=== PATIENT | male | born 1980 | race Caucasian/White ===

== ENCOUNTER → 2016-08-31 | Outpatient (CLI) | payer BC ==
--- NOTE | 2016-08-31 23:21 | CONS ---
DATE OF CONSULTATION: 08/31/2016 This 35-year-old gentleman has been evaluated in the sleep center for possible obstructive sleep apnea-hypopnea syndrome. HISTORY OF PRESENT ILLNESS:/SLEEP-WAKE EVALUATION: Patient's usual sleep schedule is from 10 or 11 p.m. until 6 or 7 a.m. basically 7 days a week. Sometimes he has problem with falling asleep. He has a TV set in bedroom. He prefers to sleep on the stomach position. According to his , he snores loudly and wakes up from sleep with stopped breathing. He wakes up from sleep 2 times and in the morning he wakes up tired and has problems with memory, feels sleep during the day. Christiana Sleepiness Scale is 11. PAST MEDICAL HISTORY: Positive for occasional episodes of sinusitis. PAST SURGICAL HISTORY: None. MEDICATIONS: None. SOCIAL HISTORY: Negative for smoking. Alcohol consumption is occasional. REVIEW OF SYSTEMS: Awakenings from sleep, sleepiness during the day. No fevers. No double vision. No recent chest pain. No shortness of breath. No abdominal pain. No bleeding episodes. No blood in urine. No seizure episodes. FAMILY HISTORY: Sinus headaches. PHYSICAL EXAMINATION: GENERAL: This is a pleasant 35-year-old gentleman without distress. VITAL SIGNS: BP 121/81, HR 76, RR 16. Height 5 feet 10 inches. Weight 193. BMI 27.6. Neck 16-1/4 inches in circumference. Temperature 97.9. Oxygen saturation at room air 98%. HEENT: PERRLA, EOMI. Evaluation of oropharynx showed tongue protrudes midline; moderately low position of soft palate. Big tonsils. Significant restriction of nasal breathing bilaterally. NECK: Supple. No JVD. Thyroid is not palpable. LUNGS: Clear to percussion and to auscultation. Good air exchange. No wheezing or rhonchi. HEART: S1, S2 regular. No murmurs, gallops or rubs. ABDOMEN: Soft and nontender. Bowel sounds are present. No organomegaly appreciated. EXTREMITIES: No clubbing or cyanosis. [employer] ASSEM[employer]ER: Awake, alert, and oriented x3. Cranial nerves 2 to 7 intact. There is no fasciculation or atrophy noted. No focal deficits observed. IMPRESSION: 1. Snoring, witnessed episodes of stopped breathing during sleep, awakenings from sleep, sleepiness, small oropharyngeal air space, restriction of nasal breathing; obstructive sleep apnea-hypopnea syndrome. 2. History of sinus problems, restriction of nasal breathing. 3. Overweight; body mass index 27.6. 4. Sleepiness. Christiana Sleepiness Scale increased to 11. PLAN: 1. Will start with home sleep apnea test. If that is negative, we may proceed with polysomnogram. 2. CPAP/BiPAP titration if sleep study confirms obstructive sleep apnea-hypopnea syndrome. 3. Preferable position during sleep on the side. 4. No driving if patient feels any sleepiness. Patient is aware of civil and criminal liability for unsafe driving. 5. I will see patient for follow-up visit to explain results of the testing and following plan. Thank you very much for referring this patient for consultation. Sincerely, Chinedu Cruz MD, PhD, FAASM. Diplomat of [place] [employer], Sleep Medicine Board by [place] [employer] [employer] [facility] [place]
== END | disposition home or self-care (01) ==
LOC: SLEEP 16:38
PROVIDERS: ATTEND Internal Medicine
DX: G47.33 Obstructive sleep apnea (adult) (pediatric) (principal); E66.3 Overweight; Z68.27 Body mass index [BMI] 27.0-27.9, adult; Z79.899 Other long term (current) drug therapy; Z87.898 Personal history of other specified conditions

== ENCOUNTER 2016-10-25 07:28 | Day surgery (SDC) | payer BC ==
[2016-10-23 10:34] VITALS: BMI 26.4
[~2016-10-25 07:28] MED LIST: DEXAMETHASONE SOD PHOSPHATE 10 MG/ML 1 ML VIAL IV ONE; DEXAMETHASONE SOD PHOSPHATE 4 MG/ML 1 ML VIAL IV ONE; FAMOTIDINE 20 MG/2 ML VIAL IV ONE; LACTATED RINGERS 1,000 ML IV SCH; ONDANSETRON 4 MG/2 ML VIAL IVP ONE; ceFAZolin 1,000 MG in DEXTROSE/WATER 1 50ML.BAG IV ONE
[2016-10-25] MEDS: OXYMETAZOLINE 0.05% NASL SPRAY 15 ML NASAL ONE ×5 (07:34→07:54)
[2016-10-25] MEDS ORDERED: LIDOCAINE 1% INJ 10MG/ML (20 ML MDV) ONE (08:46)
[2016-10-25] MEDS ORDERED: SUCCINYLCHOLINE CHLORIDE 100 MG/5 ML SYR IV ONE (08:46)
[2016-10-25] MEDS ORDERED: DEXAMETHASONE SOD PHOS (MDV) 100 MG/10 ML VIAL ONE (08:46)
[2016-10-25] MEDS ORDERED: MIDAZOLAM 2 MG/2 ML VIAL ONE (08:46)
[2016-10-25] MEDS ORDERED: PROPOFOL 10 MG/ML 20 ML VIAL IV ONE (08:46)
[2016-10-25] MEDS ORDERED: fentaNYL (PF) 50 MCG/ML 2 ML AMP ONE (08:46)
[2016-10-25] MEDS ORDERED: LIDOCAINE 1%-EPI 1:100,000 20 ML VIAL SQ ONE ×2 (09:05)
[2016-10-25] MEDS ORDERED: LACTATED RINGERS 1,000 ML IV ONE (09:34)
[2016-10-25] MEDS ORDERED: BACITRACIN 500 UNIT/GM OINT 28.4 GM TUBE TOPICAL ONE (09:37)
[2016-10-25 10:00] VITALS: TEMP 97.8
[2016-10-25] MEDS: HYDROmorphone 1 MG/ML 1 ML SYRINGE IVP PRN ×4 (10:00→10:19)
[2016-10-25] MEDS ORDERED: hydrALAZINE HCL 20 MG/ML 1 ML VIAL IVP ONE (10:09)
--- NOTE | 2016-10-25 10:11 | P.OP ---
Date of Procedure: 10/25/16 Preoperative Diagnosis: Deviated nasal septum Inferior turbinate hypertrophy Chronic sinusitis Postoperative Diagnosis: Same Procedure(s) Performed: Septoplasty Outfracture and submucous resection of the inferior turbinates Bilateral endoscopic sinus surgery including bilateral maxillary antrostomy with removal of tissue from the maxillary sinuses, bilateral anterior and posterior ethmoidectomy Implants: Anesthesia: LILIA Surgeon: Enrrique Perez Estimated Blood Loss (ml): 20 Pathology: other (Nasal septal bone and cartilage and sinus contents) Condition: stable Disposition: PACU Indications for Procedure: This is a 36-year-old white male who has difficulties with chronic nasal airway obstruction bilateral as well as chronic sinusitis and recurrent acute sinusitis with a computed tomography scan which shows inflammation in the maxillary and anterior ethmoid air cells Operative Findings: septum deviated bilaterally. Inferior turbinate hypertrophy, small cysts in the maxillary sinuses bilaterally with obstruction the os medial complexes. Mild mucosal thickening in the anterior and posterior ethmoid air cells Description of Procedure: The patient was brought in the operative suite and placed in a supine position. The patient underwent induction of general anesthesia with oral endotracheal intubation without difficulty. The patient was prepped and draped in usual aseptic fashion with the orbits in the operating field for monitoring throughout the case and computed tomography scan on the computer screen for review throughout the case. 1% lidocaine with 1 100,000 epinephrine was infused submucosally both sides nasal septum as well as lateral nasal wall bilaterally. Orbits any in vasoconstrictive effect the inferior turbinates were infractured with Blanchester elevator partial submucous resection inferior turbinates performed with Coblation device ablating a portion of the submucosal soft tissue and then outfractured with Blanchester elevator. A left hemitransfixion incision was made and mucoperichondrial mucosa flap the left elevated. Bony cartilaginous junction was disarticulated mucosal flap on the right was elevated. Bony nasal septal deformities were removed with Filemon forceps. An inferior cartilaginous strip was removed leaving a full 1.5 cm caudal strut. Checking intranasally the nasoseptal deformities were corrected and the hemitransfixion incision was closed running 4-0 chromic suture. Full 0 endoscopic evaluation was performed bilaterally. Beginning on the left medial turbinate was medialized with the Volin elevator. The maxillary ostium was located with a ballpoint probe and infundibulotomy was performed followed by uncinectomy. The maxillary ostium was enlarged at the expense anterior and posterior fontanelle taking care anteriorly not to injure the lacrimal bone. The maxillary sinus was evaluated with a 30 and 70 endoscope and the polyps were removed with a curved suction. Anterior and posterior ethmoidectomy were then performed under 0 and 30 endoscopic evaluation from anterior posterior to the level skull base ethmoid air cells cleaned from posterior to anterior superiorly. Nasal frontal duct was noted to be patent. Once this completed attention was turned to the right where the procedures were followed as they were on the left including medialization middle turbinate infundibulotomy uncinectomy maxillary antrostomy with removal of tissue from the maxillary sinus , anterior and posterior ethmoidectomy. Once this was completed xerogel nasal dressing was placed in the middle meatus under direct visualization bilaterally. Bilateral Catalan airway splints coated bacitracin ointment were placed in nasal cavities and sutured trans-septally with a 4-0 nylon suture. The patient was suctioned in oral gastric fashion. The patient allowed to emerge from general anesthesia and was extubated in the operative suite and transferred to postop recovery area in satisfactory condition.
[2016-10-25] MEDS ORDERED: METOPROLOL TARTRATE 5 MG/5 ML VIAL IVP ONE (10:54)
[2016-10-25] MEDS: MEPERIDINE 50 MG/ML SYRINGE IVP ONE ×2 (11:08→11:20)
[2016-10-25] MEDS ORDERED: ONDANSETRON 4 MG/2 ML VIAL IVP ONE (11:23)
[2016-10-25 11:40] VITALS: RESP 18
[2016-10-25] MEDS ORDERED: HYDROcodone/APAP 7.5-325MG 1 EACH TAB PO ONE (13:05)
[2016-10-25 13:11] VITALS: BP 140/79; PULSE 63
== END 2016-10-25 13:34 | disposition home or self-care (01) ==
LOC: OR 07:28
PROVIDERS: ATTEND Otolaryngology
DX: J34.2 Deviated nasal septum (principal); J34.3 Hypertrophy of nasal turbinates; J32.2 Chronic ethmoidal sinusitis; J32.0 Chronic maxillary sinusitis; F17.220 Nicotine dependence, chewing tobacco, uncomplicated; Z79.2 Long term (current) use of antibiotics; Z79.51 Long term (current) use of inhaled steroids; Z79.899 Other long term (current) drug therapy
CPT/HCPCS: 88305; 88300; 31255; 30520; 30140; 31267; J2250; J0360; J1100 ×2; J2175; J2405; J2001; J3010; J1170; J0690; J0330; J2704